=== PATIENT | male | born 1995 | race Caucasian/White ===

== ENCOUNTER 2018-06-18 15:42 | Emergency (ER) | payer OTHER ==
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
== END 2018-06-18 17:19 | disposition home or self-care (01) ==
LOC: SCSER 15:42
DX: R07.89 Other chest pain (principal); M54.2 Cervicalgia; M25.552 Pain in left hip; F90.9 Attention-deficit hyperactivity disorder, unspecified type; F17.210 Nicotine dependence, cigarettes, uncomplicated; V89.2XXA Person injured in unspecified motor-vehicle accident, traffic, initial encounter
CPT/HCPCS: 70450; 71045; 72125; 72128; 72170